=== PATIENT | male | born 1965 | race Caucasian/White ===

== ENCOUNTER 2017-10-02 10:39 | Inpatient (IN) | payer OTHER ==
[2017-10-02 10:55] VITALS: BMI 23.8
--- NOTE | 2017-10-02 13:23 | HP ---
CIWA Score - CIWA Score Nausea/Vomitin Muscle Tremors: 3 Anxiety: 3 Agitation: 3 Paroxysmal Sweats: 1-Minimal Palms Moist Orientation: 0-Oriented Tacttile Disturbances: 1-Very Mild Itch/Numbness Auditory Disturbances: 1-Very Mild Visual Disturbances: 0-None Headache: 2-Mild CIWA-Ar Total Score: 17 Admission ROS BHS - HPI Chief Complaint: i need help to stop drinking alcohol and cocaine Allergies/Adverse Reactions: Allergies Allergy/AdvReac Type Severity Reaction Status Date / Time No Known Allergies Allergy Verified 10/02/17 11:35 History of Present Illness: this 52 years old male with alcohol and cocaine dependence,seeking detox, withdrawal symptom,last detox 03/26 [facility] completed weight loss nicotine dependence anxiety,depression,insomnia no significant period of sobriety Exam Limitations: No Limitations - Ebola screening Have you traveled outside of the country in the last 21 days: No Have you had contact with anyone from an Ebola affected area: No Have you been sick,other than usual withdrawal symptoms: No Do you have a fever: No - Review of Systems Constitutional: Loss of Appetite, Malaise, Night Sweats, Changes in sleep, Weakness, Unintentional Wgt. Loss EENT: reports: Tearing, Nose Congestion Respiratory: reports: No Symptoms reported Cardiac: reports: No Symptoms Reported GI: reports: Diarrhea, Nausea, Vomiting, Abdominal cramping : reports: No Symptoms Reported Musculoskeletal: reports: Back Pain, Muscle Pain Integumentary: reports: Dryness Neuro: reports: Headache, Tremors Endocrine: reports: No Symptoms Reported Hematology: reports: No Symptoms Reported Psychiatric: reports: No Sypmtoms Reported, Judgement Intact, Mood/Affect Appropiate, Orientated x3, Anxious, Depressed (insomnia) Patient History - Patient Medical History Hx Anemia: No Hx Asthma: No Hx Chronic Obstructive Pulmonary Disease (COPD): No Hx Cardiac Disorders: No Hx Congestive Heart Failure: No Hx Hypertension: No Hx Hypercholesterolemia: No Hx Pacemaker: No HX Cerebrovascular Accident: No Hx Seizures: No Hx Dementia: No Hx Diabetes: No Hx Gastrointestinal Disorders: No Hx Liver Disease: No Hx Genitourinary Disorders: No Hx Sexually Transmitted Disorders: No Hx Renal Disease (ESRD): No Hx Thyroid Disease: No Hx Human Immunodeficiency Virus (HIV): No (last 04/26 negative) Hx Hepatitis C: No Hx Depression: No Hx Suicide Attempt: No Hx Bipolar Disorder: No Hx Schizophrenia: No Other Medical History: no suiidal,no homicidal - Patient Surgical History Past Surgical History: No Hx Neurologic Surgery: No Hx Cataract Extraction: No Hx Cardiac Surgery: No Hx Lung Surgery: No Hx Breast Surgery: No Hx Breast Biopsy: No Hx Abdominal Surgery: No Hx Appendectomy: No Hx Cholecystectomy: No Hx Genitourinary Surgery: No Hx Section: No Hx Orthopedic Surgery: No Anesthesia Reaction: No - PPD History Previous Implant?: Yes Documented Results: Negative w/o proof Implanted On Prior [facility] Admission?: No PPD to be Administered?: Yes - Smoking Cessation Smoking history: Current every day smoker Have you smoked in the past 12 months: Yes Aproximately how many cigarettes per day: 20 Hx Chewing Tobacco Use: No Initiated information on smoking cessation: Yes 'Breaking Loose' booklet given: 10/02/17 - Substance & Tx. History Hx Alcohol Use: Yes Hx Substance Use: Yes Substance Use Type: Alcohol, Cocaine - Substances Abused Crack Route: Smoking Frequency: Daily Amount used: $200 Age of first use: 21 Date of Last Use: 10/01/17 Alcohol-zenaida/cognac Route: Oral Frequency: Daily Amount used: 6-8 (24 oz.)/1 pt. Age of first use: 17 Date of Last Use: 10/01/17 Family Disease History - Family Disease History Family History: Denies Admission Physical Exam BHS - Vital Signs Vital Signs: Vital Signs - 24 hr 10/02/17 10:53 Temperature 97.7 F Pulse Rate 58 L Respiratory 18 Rate Blood Pressure 105/66 - Physical General Appearance: Yes: Moderate Distress, Tremorous, Irritable, Anxious HEENTM: Yes: Normal ENT Inspection, BREE, Pharynx Normal Respiratory: Yes: Lungs Clear, Normal Breath Sounds, No Respiratory Distress Neck: Yes: Within Normal Limits, Supple, Trachea in good position Breast: Yes: Within Normal Limits Cardiology: Yes: Within Normal Limits, Regular Rhythm, Regular Rate, S1, S2 Abdominal: Yes: Within Normal Limits, Normal Bowel Sounds, Non Tender, Flat, Soft Genitourinary: Yes: Within Normal Limits Back: Yes: Muscle Spasm Extremities: Yes: Within Normal Limits, Normal Range of Motion, Tremors Neurological: Yes: 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
[2017-10-02] MEDS ORDERED: MAG HYDROX/AL HYDROX/SIMETH 30 ML UNIT-DOSE CUP PO PRN (13:31)
[2017-10-02] MEDS ORDERED: MAGNESIUM HYDROX 2400MG/30ML ORAL SUSPENSION 30 ML CUP PO PRN (13:31)
[2017-10-02] MEDS ORDERED: LOPERAMIDE HCL 2 MG CAPSULE PO PRN (13:31)
[2017-10-02] MEDS ORDERED: guaiFENesin/D-METHORPHAN HB 10 ML UNIT-DOSE CUPS PO PRN (13:31)
[2017-10-02] MEDS ORDERED: P-EPHED 60MG/TRIPROLIDI 2.5MG TABLET PO PRN (13:31)
[2017-10-02] MEDS ORDERED: MENTHOL/PHENOL 1 EACH UD MM PRN (13:31)
[2017-10-02] MEDS ORDERED: MAGNESIUM CITRATE 300 ML BOTTLE PO PRN (13:31)
[2017-10-02] MEDS ORDERED: IBUPROFEN 400 MG TABLET (FP) PO PRN (13:31)
[2017-10-02] MEDS ORDERED: ACETAMINOPHEN 325 MG TABLET (FP) PO PRN (13:31)
[2017-10-02] MEDS ORDERED: NICOTINE POLACRILEX 2 MG GUM BUC PRN (13:31)
[2017-10-02] MEDS ORDERED: hydrOXYzine PAMOATE 25 MG CAPSULE (FP) PO PRN (13:31)
[2017-10-02] MEDS ORDERED: chlordiazePOXIDE HCL 25 MG CAPSULE PO PRN (13:31)
[2017-10-02] MEDS: NICOTINE 21 MG/24 HOURS TOPICAL PATCH TD SCH (14:46)
[2017-10-02] MEDS: chlordiazePOXIDE HCL 25 MG CAPSULE PO SCH ×2 (18:14→22:27)
[2017-10-02] MEDS ORDERED: MELATONIN 5 MG TABLETS PO PRN (22:00)
[2017-10-02] MEDS: THIAMINE HCL 100 MG TABLET (FP) PO SCH (22:28)
[2017-10-03] MEDS: chlordiazePOXIDE HCL 25 MG CAPSULE PO SCH ×4 (06:53→22:16)
[2017-10-03 10:20] LABS: HEMATOCRIT 40.5 % (35.4-49); HEMOGLOBIN 13.8 GM/dL (11.7-16.9); MCH 31.4 pg (25.7-33.7); MEAN CELL VOLUME 92.4 fl (80-96); MEAN PLT VOLUME 9.3 fl (7.5-11.1); PLATELET COUNT 230 K/MM3 (134-434); RBC 4.39 M/mm3 (4.00-5.60); RDW 14.4 % (11.9-15.9)
[2017-10-03] MEDS: PRENATAL VITAMINS W/ FOLIC ACID TABLET (FP) PO SCH (10:30)
[2017-10-03] MEDS: NICOTINE 21 MG/24 HOURS TOPICAL PATCH TD SCH (10:30)
[2017-10-03 10:39] LABS: CALCIUM 9.3 mg/dL (8.5-10.1); CHLORIDE 104 mmol/L (98-107); POTASSIUM 4.5 mmol/L (3.5-5.1); SODIUM 141 mmol/L (136-145)
[2017-10-03 10:44] LABS: URINE APPEARANCE TURBID; URINE BILIRUBIN NEGATIVE (<2.0 mg/dL); URINE COLOR YELLOW; URINE GLUCOSE (UA) 2+ (NEGATIVE); URINE KETONE NEGATIVE (NEGATIVE); URINE LEUK ESTERASE NEGATIVE (NEGATIVE); URINE NITRITE NEGATIVE (NEGATIVE); URINE PROTEIN 1+ (NEGATIVE); URINE UROBILINOGEN NEGATIVE mg/dL (0.2-1.0)
[2017-10-03 10:45] LABS: ALBUMIN 3.7 g/dl (3.4-5.0); ALK PHOS 75 U/L (45-117); ANION GAP 5 (8-16); BILIRUBIN,TOTAL 0.2 mg/dL (0.2-1.0); BLOOD UREA NITROGEN 14 mg/dL (7-18); CO2 32 mmol/L (21-32); CREATININE 0.9 mg/dL (0.7-1.3); GLUCOSE,RANDOM 116 mg/dL (74-106); SGOT/AST 23 U/L (15-37); SGPT/ALT 25 U/L (12-78); TOT PROT 7.1 g/dl (6.4-8.2)
[2017-10-03 10:55] LABS: URINE BACTERIA MANY /hpf (NONE SEEN); URINE MUCUS RARE
--- NOTE | 2017-10-03 12:41 | PN ---
[facility] CIWA - CIWA Score Nausea/Vomitin Muscle Tremors: 2 Anxiety: 2 Agitation: 2 Paroxysmal Sweats: 2 Orientation: 0-Oriented Tacttile Disturbances: 1-Very Mild Itch/Numbness Auditory Disturbances: 1-Very Mild Visual Disturbances: 0-None Headache: 2-Mild CIWA-Ar Total Score: 14 S Progress Note (SOAP) Subjective: Interrupted sleep, tremors and irritability Objective: 10/03/17 12:40 Vital Signs 10/03/17 10/03/17 06:00 10:24 Temperature 97.7 F 97.3 F L Pulse Rate 57 L 52 L Respiratory 18 18 Rate Blood Pressure 118/68 101/57 Laboratory Last Values WBC 5.0 K/mm3 (4.0-10.0) 10/03/17 05:30 RBC 4.39 M/mm3 (4.00-5.60) 10/03/17 05:30 Hgb 13.8 GM/dL (11.7-16.9) 10/03/17 05:30 Hct 40.5 % (35.4-49) 10/03/17 05:30 MCV 92.4 fl (80-96) 10/03/17 05:30 MCH 31.4 pg (25.7-33.7) 10/03/17 05:30 MCHC 34.0 g/dl (32.0-35.9) 10/03/17 05:30 RDW 14.4 % (11.9-15.9) 10/03/17 05:30 Plt Count 230 K/MM3 (134-434) 10/03/17 05:30 MPV 9.3 fl (7.5-11.1) 10/03/17 05:30 Sodium 141 mmol/L (136-145) 10/03/17 05:30 Potassium 4.5 mmol/L (3.5-5.1) 10/03/17 05:30 Chloride 104 mmol/L (98-107) 10/03/17 05:30 Carbon Dioxide 32 mmol/L (21-32) 10/03/17 05:30 Anion Gap 5 (8-16) L 10/03/17 05:30 BUN 14 mg/dL (7-18) 10/03/17 05:30 Creatinine 0.9 mg/dL (0.7-1.3) 10/03/17 05:30 Creat Clearance w eGFR > 60 (>60) 10/03/17 05:30 Random Glucose 116 mg/dL (74-106) H 10/03/17 05:30 Calcium 9.3 mg/dL (8.5-10.1) 10/03/17 05:30 Total Bilirubin 0.2 mg/dL (0.2-1.0) 10/03/17 05:30 AST 23 U/L (15-37) 10/03/17 05:30 ALT 25 U/L (12-78) 10/03/17 05:30 Alkaline Phosphatase 75 U/L (45-117) 10/03/17 05:30 Total Protein 7.1 g/dl (6.4-8.2) 10/03/17 05:30 Albumin 3.7 g/dl (3.4-5.0) 10/03/17 05:30 Urine Color Yellow 10/03/17 05:50 Urine Appearance Turbid 10/03/17 05:50 Urine pH 5.0 (5.0-8.0) 10/03/17 05:50 Ur Specific [place] 1.032 (1.001-1.035) 10/03/17 05:50 Urine Protein 1+ (NEGATIVE) H 10/03/17 05:50 Urine Glucose (UA) 2+ (NEGATIVE) H 10/03/17 05:50 Urine Ketones Negative (NEGATIVE) 10/03/17 05:50 Urine Blood 3+ (NEGATIVE) H 10/03/17 05:50 Urine Nitrite Negative (NEGATIVE) 10/03/17 05:50 Urine Bilirubin Negative (<2.0 mg/dL) 10/03/17 05:50 Urine Urobilinogen Negative mg/dL (0.2-1.0) 10/03/17 05:50 Ur Leukocyte Esterase Negative (NEGATIVE) 10/03/17 05:50 Urine WBC (Auto) None /hpf (3-5) 10/03/17 05:50 Urine RBC (Auto) 55 /hpf (0-3) 10/03/17 05:50 Urine Bacteria Many /hpf (NONE SEEN) 10/03/17 05:50 Urine Mucus Rare 10/03/17 05:50 RPR Titer Nonreactive (NONREACTIVE) 10/03/17 05:30 HIV 1&2 Antibody Screen Negative 10/02/17 12:00 HIV P24 Antigen Negative 10/02/17 12:00 Labs noted Assessment: 10/03/17 12:41 Withdrawal sx Plan: Continue detox
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
[2017-10-03] MEDS: THIAMINE HCL 100 MG TABLET (FP) PO SCH (22:16)
[2017-10-04] MEDS: chlordiazePOXIDE HCL 25 MG CAPSULE PO SCH ×2 (05:45→10:37)
[2017-10-04] MEDS: PRENATAL VITAMINS W/ FOLIC ACID TABLET (FP) PO SCH (10:37)
[2017-10-04] MEDS: NICOTINE 21 MG/24 HOURS TOPICAL PATCH TD SCH (10:37)
--- NOTE | 2017-10-04 12:37 | PN ---
S CIWA - CIWA Score Nausea/Vomitin-Mild Nausea/No Vomiting Muscle Tremors: 3 Anxiety: 3 Agitation: 3 Paroxysmal Sweats: 1-Minimal Palms Moist Orientation: 0-Oriented Tacttile Disturbances: 2-Mild Itch/Numbness/Burn Auditory Disturbances: 0-None Visual Disturbances: 0-None Headache: 0-None Present CIWA-Ar Total Score: 13 BHS Progress Note (SOAP) Subjective: sweat tremor restlessness anxiety trouble sleep at night Objective: 10/04/17 12:37 Vital Signs Temperature 97.7 F 10/04/17 06:00 Pulse Rate 53 L 10/04/17 06:00 Respiratory Rate 16 10/04/17 06:00 Blood Pressure 111/72 10/04/17 06:00 O2 Sat by Pulse Oximetry (%) Laboratory Last Values WBC 5.0 K/mm3 (4.0-10.0) 10/03/17 05:30 RBC 4.39 M/mm3 (4.00-5.60) 10/03/17 05:30 Hgb 13.8 GM/dL (11.7-16.9) 10/03/17 05:30 Hct 40.5 % (35.4-49) 10/03/17 05:30 MCV 92.4 fl (80-96) 10/03/17 05:30 MCH 31.4 pg (25.7-33.7) 10/03/17 05:30 MCHC 34.0 g/dl (32.0-35.9) 10/03/17 05:30 RDW 14.4 % (11.9-15.9) 10/03/17 05:30 Plt Count 230 K/MM3 (134-434) 10/03/17 05:30 MPV 9.3 fl (7.5-11.1) 10/03/17 05:30 Sodium 141 mmol/L (136-145) 10/03/17 05:30 Potassium 4.5 mmol/L (3.5-5.1) 10/03/17 05:30 Chloride 104 mmol/L (98-107) 10/03/17 05:30 Carbon Dioxide 32 mmol/L (21-32) 10/03/17 05:30 Anion Gap 5 (8-16) L 10/03/17 05:30 BUN 14 mg/dL (7-18) 10/03/17 05:30 Creatinine 0.9 mg/dL (0.7-1.3) 10/03/17 05:30 Creat Clearance w eGFR > 60 (>60) 10/03/17 05:30 Random Glucose 116 mg/dL (74-106) H 10/03/17 05:30 Calcium 9.3 mg/dL (8.5-10.1) 10/03/17 05:30 Total Bilirubin 0.2 mg/dL (0.2-1.0) 10/03/17 05:30 AST 23 U/L (15-37) 10/03/17 05:30 ALT 25 U/L (12-78) 10/03/17 05:30 Alkaline Phosphatase 75 U/L (45-117) 10/03/17 05:30 Total Protein 7.1 g/dl (6.4-8.2) 10/03/17 05:30 Albumin 3.7 g/dl (3.4-5.0) 10/03/17 05:30 Urine Color Yellow 10/03/17 05:50 Urine Appearance Turbid 10/03/17 05:50 Urine pH 5.0 (5.0-8.0) 10/03/17 05:50 Ur Specific [place] 1.032 (1.001-1.035) 10/03/17 05:50 Urine Protein 1+ (NEGATIVE) H 10/03/17 05:50 Urine Glucose (UA) 2+ (NEGATIVE) H 10/03/17 05:50 Urine Ketones Negative (NEGATIVE) 10/03/17 05:50 Urine Blood 3+ (NEGATIVE) H 10/03/17 05:50 Urine Nitrite Negative (NEGATIVE) 10/03/17 05:50 Urine Bilirubin Negative (<2.0 mg/dL) 10/03/17 05:50 Urine Urobilinogen Negative mg/dL (0.2-1.0) 10/03/17 05:50 Ur Leukocyte Esterase Negative (NEGATIVE) 10/03/17 05:50 Urine WBC (Auto) None /hpf (3-5) 10/03/17 05:50 Urine RBC (Auto) 55 /hpf (0-3) 10/03/17 05:50 Urine Bacteria Many /hpf (NONE SEEN) 10/03/17 05:50 Urine Mucus Rare 10/03/17 05:50 RPR Titer Nonreactive (NONREACTIVE) 10/03/17 05:30 HIV 1&2 Antibody Screen Negative 10/02/17 12:00 HIV P24 Antigen Negative 10/02/17 12:00 lab noted repeat ua Assessment: 10/04/17 12:38 withdrawal sx Plan: continue detox
[2017-10-04] MEDS: chlordiazePOXIDE 5 MG CAPSULE PO SCH ×2 (17:32→23:35)
[2017-10-04] MEDS: THIAMINE HCL 100 MG TABLET (FP) PO SCH (23:34)
[2017-10-05] MEDS: chlordiazePOXIDE 5 MG CAPSULE PO SCH ×2 (05:35→13:09)
[2017-10-05 09:51] VITALS: BP 110/60; PULSE 63; TEMP 97.9
[2017-10-05] MEDS: NICOTINE 21 MG/24 HOURS TOPICAL PATCH TD SCH (10:31)
[2017-10-05] MEDS: PRENATAL VITAMINS W/ FOLIC ACID TABLET (FP) PO SCH (10:32)
[2017-10-05 11:07] LABS: URINE APPEARANCE CLEAR; URINE BILIRUBIN NEGATIVE (<2.0 mg/dL); URINE COLOR LTYELLOW; URINE GLUCOSE (UA) NEGATIVE (NEGATIVE); URINE KETONE NEGATIVE (NEGATIVE); URINE LEUK ESTERASE NEGATIVE (NEGATIVE); URINE NITRITE NEGATIVE (NEGATIVE); URINE PROTEIN NEGATIVE (NEGATIVE); URINE UROBILINOGEN NEGATIVE mg/dL (0.2-1.0)
--- NOTE | 2017-10-05 11:10 | EKG ---
Test Reason : Blood Pressure : / mmHG Vent. Rate : 053 BPM Atrial Rate : 053 BPM P-R Int : 166 ms QRS Dur : 086 ms QT Int : 428 ms P-R-T Axes : 056 012 014 degrees QTc Int : 401 ms SINUS BRADYCARDIA MINIMAL VOLTAGE CRITERIA FOR LVH, MAY BE NORMAL VARIANT SEPTAL INFARCT , AGE UNDETERMINED ABNORMAL ECG NO PREVIOUS ECGS AVAILABLE Confirmed by RODERICK GRANDA MD ([id number]) on 10/05/2017 11:10:18 AM Referred By: Confirmed By:RODERICK GRANDA MD
--- NOTE | 2017-10-05 12:00 | DS ---
[facility] Detox Discharge Summary Admission Date: 10/02/17 Discharge Date: 10/05/17 - History Present History: Alcohol Dependence Additional Comments: 52 years old male admitted on 10/02/17 for alcohol withdrawal sx prefers begin recovery process today at [facility] that by history help him maintenance sober patient is alert oriented x 3 no acute distress meeting with counselor discuss aftercare that the patient made an arrangement at the [facility] - Physical Exam Results Vital Signs: Vital Signs Temperature 97.9 F 10/05/17 09:51 Pulse Rate 63 10/05/17 09:51 Respiratory Rate 18 10/05/17 09:51 Blood Pressure 110/60 10/05/17 09:51 O2 Sat by Pulse Oximetry (%) Pertinent Admission Physical Exam Findings: alcohol withdrawal sx Vital Signs Temperature 97.9 F 10/05/17 09:51 Pulse Rate 63 10/05/17 09:51 Respiratory Rate 18 10/05/17 09:51 Blood Pressure 110/60 10/05/17 09:51 O2 Sat by Pulse Oximetry (%) Laboratory Last Values WBC 5.0 K/mm3 (4.0-10.0) 10/03/17 05:30 RBC 4.39 M/mm3 (4.00-5.60) 10/03/17 05:30 Hgb 13.8 GM/dL (11.7-16.9) 10/03/17 05:30 Hct 40.5 % (35.4-49) 10/03/17 05:30 MCV 92.4 fl (80-96) 10/03/17 05:30 MCH 31.4 pg (25.7-33.7) 10/03/17 05:30 MCHC 34.0 g/dl (32.0-35.9) 10/03/17 05:30 RDW 14.4 % (11.9-15.9) 10/03/17 05:30 Plt Count 230 K/MM3 (134-434) 10/03/17 05:30 MPV 9.3 fl (7.5-11.1) 10/03/17 05:30 Sodium 141 mmol/L (136-145) 10/03/17 05:30 Potassium 4.5 mmol/L (3.5-5.1) 10/03/17 05:30 Chloride 104 mmol/L (98-107) 10/03/17 05:30 Carbon Dioxide 32 mmol/L (21-32) 10/03/17 05:30 Anion Gap 5 (8-16) L 10/03/17 05:30 BUN 14 mg/dL (7-18) 10/03/17 05:30 Creatinine 0.9 mg/dL (0.7-1.3) 10/03/17 05:30 Creat Clearance w eGFR > 60 (>60) 10/03/17 05:30 Random Glucose 116 mg/dL (74-106) H 10/03/17 05:30 Calcium 9.3 mg/dL (8.5-10.1) 10/03/17 05:30 Total Bilirubin 0.2 mg/dL (0.2-1.0) 10/03/17 05:30 AST 23 U/L (15-37) 10/03/17 05:30 ALT 25 U/L (12-78) 10/03/17 05:30 Alkaline Phosphatase 75 U/L (45-117) 10/03/17 05:30 Total Protein 7.1 g/dl (6.4-8.2) 10/03/17 05:30 Albumin 3.7 g/dl (3.4-5.0) 10/03/17 05:30 Urine Color Ltyellow 10/05/17 07:00 Urine Appearance Clear 10/05/17 07:00 Urine pH 5.0 (5.0-8.0) 10/05/17 07:00 Ur Specific [place] 1.017 (1.001-1.035) 10/05/17 07:00 Urine Protein Negative (NEGATIVE) 10/05/17 07:00 Urine Glucose (UA) Negative (NEGATIVE) 10/05/17 07:00 Urine Ketones Negative (NEGATIVE) 10/05/17 07:00 Urine Blood Negative (NEGATIVE) 10/05/17 07:00 Urine Nitrite Negative (NEGATIVE) 10/05/17 07:00 Urine Bilirubin Negative (<2.0 mg/dL) 10/05/17 07:00 Urine Urobilinogen Negative mg/dL (0.2-1.0) 10/05/17 07:00 Ur Leukocyte Esterase Negative (NEGATIVE) 10/05/17 07:00 Urine WBC (Auto) None /hpf (3-5) 10/03/17 05:50 Urine RBC (Auto) 55 /hpf (0-3) 10/03/17 05:50 Urine Bacteria Many /hpf (NONE SEEN) 10/03/17 05:50 Urine Mucus Rare 10/03/17 05:50 RPR Titer Nonreactive (NONREACTIVE) 10/03/17 05:30 HIV 1&2 Antibody Screen Negative 10/02/17 12:00 HIV P24 Antigen Negative 10/02/17 12:00 lab noted - Treatment Hospital Course: Detox Protocol Followed, Detoxed Safely, Responded well, Discharged Condition Good, Rehab Referral Accepted Patient has Accepted a Rehab Referral to: [facility] - Medication Discharge Medications: Ambulatory Orders NK [No Known Home Medication] 10/02/17 - Diagnosis (1) Alcohol dependence with uncomplicated withdrawal Current Visit: Yes Status: Acute (2) Nicotine dependence Current Visit: Yes Status: Acute Qualifiers: Nicotine product type: cigarettes Substance use status: in withdrawal Qualified Code(s): F17.213 - Nicotine dependence, cigarettes, with withdrawal (3) Weight loss Current Visit: Yes Status: Acute - AMA Did Patient Leave Against Medical Advice: No
[2017-10-05] MEDS ORDERED: chlordiazePOXIDE HCL 10 MG CAPSULE PO SCH (17:00)
== END 2017-10-05 10:36 | disposition home or self-care (01) | DRG 774 ==
LOC: YASAS 10:39 → Y6N 13:18
PROVIDERS: ADMIT Surgery; ATTEND Surgery
PROC: HZ2ZZZZ Detoxification Services for Substance Abuse Treatment (ICD-10-PCS; principal; 2017-10-02)
DX: F10.230 Alcohol dependence with withdrawal, uncomplicated (principal); F14.20 Cocaine dependence, uncomplicated; F17.213 Nicotine dependence, cigarettes, with withdrawal; F51.05 Insomnia due to other mental disorder; R55 Syncope and collapse; Z68.23 Body mass index [BMI] 23.0-23.9, adult; R63.4 Abnormal weight loss; Z59.0 Homelessness
CPT/HCPCS: 36415; 80053; 81003; 81015; 85027; 86593; 87389; 93005; 93010